=== PATIENT | female | born 1990 | race American Indian/Alaskan Native ===

== ENCOUNTER 2021-03-19 22:47 | Emergency (ER) | payer SELFPAY ==
[2021-03-19 23:34] VITALS: BP 129/76
[2021-03-20] MEDS ORDERED: HYDROcodone/ACETAMINOPHEN 5-325 MG TAB PO ONE (02:21)
[2021-03-20] MEDS ORDERED: LIDOCAINE-MPF (1%) 10 MG/1 ML VIAL 5 ML INFILTRATI ONE (02:21)
--- NOTE | 2021-03-20 02:47 | Emergency Department Report ---
ED Lower Extremity HPI - General Chief Complaint: Extremity Injury, Lower Stated Complaint: DISLOCATED RIGHT PINKY TOE Time Seen by Provider: 03/20/21 02:20 Source: patient Mode of arrival: Ambulatory Limitations: No Limitations - History of Present Illness Initial Comments: Patient 30-year-old -[place] female who presents for right fifth digit t oe pain and deformity after accidentally kicking the couch with her foot this evening. Patient remains ambulatory however pain is described as 5/10 tingling and aching. There is no broken skin. No abrasion no bleeding no nail damage. MD Complaint: foot injury - Related Data Previous Rx's Medication Instructions Recorded Last Taken Type HYDROcodone/APAP 5-325 [[place] 1 each PO Q6HR PRN #12 tablet 03/20/21 Unknown Rx 5-325 mg TAB] Allergies Allergy/AdvReac Type Severity Reaction Status Date / Time Penicillins Allergy Unknown Verified 03/19/21 23:30 ED Review of Systems ROS: Stated complaint: DISLOCATED RIGHT PINKY TOE Other details as noted in HPI Constitutional: denies: chills, fever Eyes: denies: eye pain, eye discharge, vision change ENT: denies: ear pain, throat pain Respiratory: denies: cough, shortness of breath, wheezing Cardiovascular: denies: chest pain, palpitations Endocrine: no symptoms reported Gastrointestinal: denies: abdominal pain, nausea, vomiting, diarrhea Genitourinary: denies: urgency, dysuria, discharge Musculoskeletal: other (Right pinky toe pain ) Skin: denies: rash, lesions Neurological: denies: headache, weakness, paresthesias Psychiatric: denies: anxiety, depression Hematological/Lymphatic: denies: easy bleeding, easy bruising ED Past Medical Hx - Past Medical History Previous Medical History?: No - Surgical History Past Surgical History?: Yes Hx Appendectomy: Yes - Social History Smoking Status: Never Smoker Substance Use Type: None - Medications Home Medications: Home Medications Medication Instructions Recorded Confirmed Last Taken Type HYDROcodone/APAP 5-325 [[place] 1 each PO Q6HR PRN #12 tablet 03/20/21 Unknown Rx 5-325 mg TAB] ED Physical Exam - General Limitations: No Limitations General appearance: alert, in no apparent distress - Head Head exam: Present: atraumatic, normocephalic - Eye Eye exam: Present: normal appearance, EOMI Pupils: Present: normal accommodation - ENT ENT exam: Present: mucous membranes moist - Neck Neck exam: Present: normal inspection, full ROM. Absent: tenderness - Respiratory Respiratory exam: Present: normal lung sounds bilaterally. Absent: respiratory distress, wheezes, chest wall tenderness - Cardiovascular Cardiovascular Exam: Present: regular rate, normal rhythm, normal heart sounds. Absent: systolic murmur, diastolic murmur, rubs, gallop - GI/Abdominal GI/Abdominal exam: Present: soft, normal bowel sounds. Absent: distended, tenderness - Rectal Rectal exam: Present: deferred - Extremities Exam Extremities exam: Present: full ROM, tenderness, pedal edema - Back Exam Back exam: Present: normal inspection, full ROM. Absent: tenderness - Neurological Exam Neurological exam: Present: alert, oriented X3, CN II-XII intact, normal gait, reflexes normal. Absent: motor sensory deficit - Psychiatric Psychiatric exam: Present: normal affect, normal mood - Skin Skin exam: Present: warm, dry, intact, normal color. Absent: rash ED Course Vital Signs 03/19/21 23:31 Temperature 98.3 F Pulse Rate 100 H Respiratory 17 Rate Blood Pressure 129/76 O2 Sat by Pulse 97 Oximetry - Procedure Description Procedures done: Reduction of angulated right closed pinky toe fracture. Site cleaned with alcohol prep, anesthesia with 1% lidocaine x1 cc via digital block, anesthesia was achieved, and relation to reduce manually, alignment is achieved, toe was alicia taped, fracture remains closed there is no bleeding no abnormal swelling, distal pulses are intact [employer] less than 3 seconds bilateral. Patient given aftercare instructions including orthopedic shoe patient verbalized understanding of same patient tolerated procedure with minimal distress. ED Lower Extremity MDM - Radiology Data Radiology results: report reviewed, image reviewed Ordering Physician: ELIZA HERRERA NP Date of Service: 03/20/21 Procedure(s): XR foot 2V LT Accession Number(s): [id number] cc: ELIZA HERRERA NP Fluoro Time In Minutes: Left foot radiograph, 2 views HISTORY: Pain COMPARISON: None FINDINGS: Acute oblique fracture of the fifth toe proximal phalanx with apex medial angulation. No additional fracture or joint subluxation. Signer Name: Mitul Butts MD Signed: 03/20/2021 3:02 AM Workstation Name: [id number] Transcribed By: LINCOLN Dictated By: MITUL BUTTS MD Electronically Authenticated By: MITUL BUTTS MD Signed Date/Time: 03/20/21301 DD/ 9 TD/TT: - Medical Decision Making Closed right pinky toe fracture reduced, toes alicia tape, Ortho shoe applied, pain is improved with digital block, patient will be DC'd home with orthopedic shoe, as needed pain medication, follow-up with orthopedic surgery in 2 to 3 days. Patient is currently ambulatory with steady gait with Ortho shoe patient is alert oriented x3 with no acute distress. There is no bleeding, patient tolerated procedure with minimal distress. Critical care attestation.: If time is entered above; I have spent that time in minutes in the direct care of this critically ill patient, excluding procedure time. ED Disposition Clinical Impression: Closed fracture of phalanx of right fifth toe Qualifiers: Encounter type: initial encounter Qualified Code(s): S92.501A - Displaced unspecified fracture of right lesser toe(s), initial encounter for closed fracture Disposition: DC-01 TO HOME OR SELFCARE Is pt being admited?: No Does the pt Need Aspirin: No Condition: Stable Instructions: Toe Fracture Rehab-SportsMed, Cast or Splint Care, Adult, [id number] Additional Instructions: Take medications as prescribed, use orthopedic shoe as directed, follow-up with orthopedic surgery in 2 to 3 days. Return to emergency should symptoms worsen. Prescriptions: HYDROcodone/APAP 5-325 [[place] 5-325 mg TAB] 1 each PO Q6HR PRN #12 tablet PRN Reason: Pain Referrals: MARTHA LAKHANI MD [Staff Physician] - 3-5 Days Forms: Work/School Release Form(ED) Time of Disposition: 03:37
--- NOTE | 2021-03-20 03:06 | XRay Report ---
Left foot radiograph, 2 views HISTORY: Pain COMPARISON: None FINDINGS: Acute oblique fracture of the fifth toe proximal phalanx with apex medial angulation. No ad ditional fracture or joint subluxation. Signer Name: Shelton Del Rio MD Signed: 03/20/2021 3:02 AM Workstation Name: [id number]
== END 2021-03-20 04:12 | disposition home or self-care (01) ==
LOC: ED 22:47
DX: S92.501A Displaced unspecified fracture of right lesser toe(s), initial encounter for closed fracture (principal); Z88.0 Allergy status to penicillin; Z79.899 Other long term (current) drug therapy; Z90.49 Acquired absence of other specified parts of digestive tract; X58.XXXA Exposure to other specified factors, initial encounter; Y93.89 Activity, other specified; Y92.89 Other specified places as the place of occurrence of the external cause; Y99.8 Other external cause status